=== PATIENT | female | born 1960 | race Caucasian/White ===

== ENCOUNTER → 2023-01-12 13:29 | Outpatient (BNVA) | payer SELFPAY | PROVIDERS: PCP Family Medicine; Visit Provider Registered Nurse Neonatal Intensive Care | DX: R39.9 Unspecified symptoms and signs involving the genitourinary system (principal); N39.0 Urinary tract infection, site not specified | CPT/HCPCS: 81000; 87086 ==

== ENCOUNTER 2023-07-30 05:22 | Emergency (ER) | payer OTHER, MEDICAID, SELFPAY ==
--- NOTE | 2023-07-30 05:25 | ECG_ITS ---
[facility] Test Date: 2023-07-30 Pat Name: Cici Najera Department: Room: Gender: Female Billet Recorder: : 1960 Requested By: Luna Kent Order Number: [id number] Kem MD: Michael Cao M.D. Measurements Intervals [place] Rate: 103 P: 72 [place]: 154 QRS: -71 QRSD: 108 T: 104 QT: 351 QTc: 460 Interpretive Statements SINUS TACHYCARDIA POSSIBLE LEFT ATRIAL ENLARGEMENT [-0.1mV P-WAVE IN V1/V2] LEFT AXIS DEVIATION [QRS AXIS < -30] ANTEROSEPTAL MYOCARDIAL INFARCTION , OF INDETERMINATE AGE [40+ ms Q WAVE IN V1-V4] MODERATE T-WAVE ABNORMALITY, CONSIDER LATERAL ISCHEMIA [-0.1+ mV T-WAVE IN I/aVL/V5/V6] No previous ECG available for comparison Electronically Signed On 07-30-2023 23:15:32 VENETIAN BLIND ASSEMBLER by Michael Cao M.D. [id number]
[2023-07-30 05:26] VITALS: BP 192/113; PULSE 103; RESP 22; TEMP 36.7; O2SAT 95; BMI 27.9
--- NOTE | 2023-07-30 05:33 | XRR_ITS ---
PROCEDURE INFORMATION: Exam: XR Chest Exam date and time: 07/30/2023 5:39 AM Age: 63 years old Clinical indication: Shortness of breath; Prior surgery; Surgery date: 6+ months; Surgery type: Open heart; Additional info: SOB TECHNIQUE: Imaging protocol: Radiologic exam of the chest. Views: 1 view. COMPARISON: No relevant prior studies available. FINDINGS: Lungs: There is ill-defined ground-glass opacity in the mid to lower left lung partially obscuring left heart border and left hemidiaphragm. There is similar opacity in the medial lower right lung, with dense opacity obscuring the right heart border. Pleural spaces: No pneumothorax. The right lateral costophrenic sulcus is blunted. The left hemidiaphragm is obscured. Heart/Mediastinum: The cardiac silhouette is partially obscured and mildly enlarged. Bones/joints: Sternal wires are present. There is no displacement to suggest sternal dehiscence. XR/XR chest 1V portable [id number] IMPRESSION: 1. Probable bilateral pleural effusions, greater on the left. 2. Nonspecific opacity in both lungs, greater on the left. Possible pulmonary edema, infection and or atelectasis.
--- NOTE | 2023-07-30 05:34 | ED_ITS ---
Documented by User: Luna Kent MD 07/30/23 17:56 HPI - SOB/Dyspnea General: Chief Complaint: Shortness of Breath/Dyspnea Stated Complaint: sob nausea Time Seen by Provider: 07/30/23 05:27 Source: patient Mode of arrival: ambulatory Limitations: no limitations History of Present Illness: HPI Narrative: 63-year-old female with a history of extensive cardiac history including open heart surgery in the past states that over the last week she has had shortness of breath along with some nausea. She denies any chest pain but states that she has had similar episodes like this in the past when she had MA. She denies any cough or fever denies any worsening proving factors. Associated symptoms: Reports nausea; Deny abdominal pain, chest pain, fever(s) or vomiting Review of Systems Const: Denies: fever(s), chills, body aches or change in appetite ENMT: Denies: throat pain or dental pain Card: Denies: chest pain Resp: Reports: dyspnea GI: Reports: nausea; Denies: abdominal pain, vomiting or diarrhea Musc: Denies: neck pain or back pain Skin/Breast: Denies: rash Neuro: Denies: headache(s) Course Vital Signs: Vital signs: Vital Signs Temperature 98.0 F 07/30/23 05:26 Pulse Rate 82 07/30/23 06:31 Respiratory Rate 15 07/30/23 06:31 Blood Pressure 151/89 07/30/23 06:31 Pulse Oximetry 97 07/30/23 06:31 Oxygen Delivery Me thod Room Air 07/30/23 06:31 MDM - SOB/Dyspnea Medical Decision Making Patient presents for shortness of breath care turned over to Dr. Babin at this time pending imaging and blood work. Medical Records I reviewed the patient's medical records. Lab Data I reviewed the patient's lab results. 07/30/23 05:38 07/30/23 05:38 Labs/Radiology: Radiology Impressions Chest X-Ray 07/30/23 05:33 IMPRESSION: 1. Probable bilateral pleural effusions, greater on the left. 2. Nonspecific opacity in both lungs, greater on the left. Possible pulmonary edema, infection and or atelectasis. Laboratory Results WBC 9.16 10^3/uL (3.29-11.43) 07/30/23 05:38 RBC 4.41 10^6/uL (3.85-5.65) 07/30/23 05:38 Hgb 11.50 g/dL (11.27-16.99) 07/30/23 05:38 Hct 36.1 % (36-47) 07/30/23 05:38 MCV 81.9 fl (85-98) L 07/30/23 05:38 MCH 26.1 pg (27-33) L 07/30/23 05:38 MCHC 31.9 g/dL (30-55) 07/30/23 05:38 RDW 13.9 % (12.1-15.1) 07/30/23 05:38 Plt Count 218 10^3/cmm (157-399) 07/30/23 05:38 MPV 9.1 fL (7.4-10.4) 07/30/23 05:38 Neut % (Auto) 74.9 % 07/30/23 05:38 Lymph % (Auto) 16.8 % 07/30/23 05:38 Calvert % (Auto) 5.2 % 07/30/23 05:38 Eos % (Auto) 2.5 % 07/30/23 05:38 Baso % (Auto) 0.4 % 07/30/23 05:38 Neut # (Auto) 6.85 10^3/uL (1.8-7.7) 07/30/23 05:38 Lymph # (Auto) 1.5 10^3/uL (0.8-4.8) 07/30/23 05:38 Calvert # (Auto) 0.5 10^3/uL (0.2-0.9) 07/30/23 05:38 Eos # (Auto) 0.2 10^3/uL (0.0-0.8) 07/30/23 05:38 Baso # (Auto) 0.0 10^3/uL (0.0-0.1) 07/30/23 05:38 Nucleated RBC % (auto) 0 % 07/30/23 05:38 Nucleated RBCs # 0.0 /100WBC 07/30/23 05:38 Sodium 143 mmol/L (136-145) 07/30/23 05:38 Potassium 4.4 mmol/L (3.5-5.1) 07/30/23 05:38 Chloride 107 mmol/L (98-107) 07/30/23 05:38 Carbon Dioxide 27 mmol/L (22-29) 07/30/23 05:38 Anion Gap 13.4 (5-19) 07/30/23 05:38 BUN 26 mg/dL (8-23) H 07/30/23 05:38 Creatinine 1.3 mg/dL (0.5-0.9) H 07/30/23 05:38 GFR Calculation 41.2 mL/min (90-130) L 07/30/23 05:38 Glucose 142 mg/dL (65-115) H 07/30/23 05:38 Calculated Osmolality 303 mOsm/kg (285-295) H 07/30/23 05:38 Calcium 9.5 mg/dL (8.5-10.5) 07/30/23 05:38 Total Bilirubin 0.5 mg/dL (0.15-1.2) 07/30/23 05:38 AST 11 U/L (0-32) 07/30/23 05:38 ALT 8 U/L (0-33) 07/30/23 05:38 Alkaline Phosphatase 72 U/L (35-105) 07/30/23 05:38 Troponin T Baseline 73 ng/L (0-10) H 07/30/23 05:38 Troponin T 120 Minute 59.21 ng/L (0-10) H 07/30/23 07:37 Delta Troponin T -13.79 ABS# (0-10) L 07/30/23 07:37 NT-Pro-B Natriuret Pep 5071 pg/mL (0-125) H 07/30/23 05:38 Total Protein 7.4 g/dL (6.6-8.7) 07/30/23 05:38 Albumin 4.4 g/dL (3.5-5.2) 07/30/23 05:38 Globulin 3.0 g/dL (1.3-4.6) 07/30/23 05:38 All radiology interpretation(s) finalized by discharge EKG Data EKG 1: I personally reviewed and interpreted this EKG as follows: EKG Interpretation Date: 07/30/23 EKG interpretation time: 09:25 Interpretation: sinus tach hr [address] or t wave abnormalities qrs 108 qtc 410 Discharge Plan Discharge Patient Disposition: Home Clinical Impression: Congestive heart failure, Hx of coronary artery disease Condition: Stable Prescriptions: New Lasix 40 mg tablet 40 mg PO DAILY Qty: 5 0RF No Action insulin glargine 100 unit/mL cartridge 40 unit SUBCUT QAM pioglitazone-glimepiride 30-2 mg tablet 1 tab PO DAILY Rx Instructions: administer with the first main meal lisinopril 40 mg tablet 40 mg PO DAILY aspirin 81 mg tablet,chewable 81 mg PO QAM furosemide 20 mg tablet 20 mg PO QAM Discharge Orders: Discharge ED (Routine); Ordered 07/30/23 Ordered By: Niko Babin Referrals: NINA MARCH MD [Primary Care Provider] - Discharge Diet: Cardiac and Low Salt Discharge Activity: Increase activity as tolerated Patient Instructions: Heart Failure (ED), Opioid Safety, Pain Management Activity Restrictions/Additional Instructions: Thank you for choosing [facility] for your healthcare needs today. Please realize this is an emergency room and that we are providing you with a medical screening exam and this may not be complete and all inclusive of all the testing and or work up that you may need to determine your ailment or severity of your illness. It is very important that you follow up as instructed or that you return to the Emergency Department should you have concerns or if your condition changes or worsens in any way. You are seen today in the emergency room for shortness of breath and orthopnea. Recommend you increase your Lasix to 40 mg daily for at least next 3 days you are given a new prescription for this. Keep your appoint follow-up appointment with your embroidery assistant tomorrow to reevaluate. If any worsening or change symptoms return to the emergency room. Continue to take your other blood pressu re medications as previously prescribed. Coding Level of Care Code ED Surgeon Assistant for Chg Fwd Documented by User: Niko Babin DO 07/31/23 06:09 HPI - SOB/Dyspnea General: Chief Complaint: Shortness of Breath/Dyspnea Stated Complaint: sob nausea Time Seen by Provider: 07/30/23 05:27 Course Vital Signs: Vital signs: Vital Signs Temperature 98.0 F 07/30/23 05:26 Pulse Rate 82 07/30/23 06:31 Respiratory Rate 15 07/30/23 06:31 Blood Pressure 151/89 07/30/23 06:31 Pulse Oximetry 97 07/30/23 06:31 Oxygen Delivery Me thod Room Air 07/30/23 06:31 MDM - SOB/Dyspnea Medical Decision Making Patient presents for shortness of breath care turned over to Dr. Babin at this time pending imaging and blood work. Care assumed at change of shift. Troponins stable. No significant delta. Think she does have some fluid overload she is somewhat improved after receiving Lasix. Her creatinine is borderline at 1.3 will need to watch closely we will start her back on Lasix 20 mg daily and have her follow-up with her primary care doctor or embroidery assistant within the next 3 to 4 days. Noted that pioglitazone glimepiride is on her medication list however the medications the patient and wh ether she states she is not taking that particular medication she is taking plain glimepiride at this point. Lab Data 07/30/23 05:38 07/30/23 05:38 Labs/Radiology: Radiology Impressions Chest X-Ray 07/30/23 05:33 IMPRESSION: 1. Probable bilateral pleural effusions, greater on the left. 2. Nonspecific opacity in both lungs, greater on the left. Possible pulmonary edema, infection and or atelectasis. Laboratory Results WBC 9.16 10^3/uL (3.29-11.43) 07/30/23 05:38 RBC 4.41 10^6/uL (3.85-5.65) 07/30/23 05:38 Hgb 11.50 g/dL (11.27-16.99) 07/30/23 05:38 Hct 36.1 % (36-47) 07/30/23 05:38 MCV 81.9 fl (85-98) L 07/30/23 05:38 MCH 26.1 pg (27-33) L 07/30/23 05:38 MCHC 31.9 g/dL (30-55) 07/30/23 05:38 RDW 13.9 % (12.1-15.1) 07/30/23 05:38 Plt Count 218 10^3/cmm (157-399) 07/30/23 05:38 MPV 9.1 fL (7.4-10.4) 07/30/23 05:38 Neut % (Auto) 74.9 % 07/30/23 05:38 Lymph % (Auto) 16.8 % 07/30/23 05:38 Calvert % (Auto) 5.2 % 07/30/23 05:38 Eos % (Auto) 2.5 % 07/30/23 05:38 Baso % (Auto) 0.4 % 07/30/23 05:38 Neut # (Auto) 6.85 10^3/uL (1.8-7.7) 07/30/23 05:38 Lymph # (Auto) 1.5 10^3/uL (0.8-4.8) 07/30/23 05:38 Calvert # (Auto) 0.5 10^3/uL (0.2-0.9) 07/30/23 05:38 Eos # (Auto) 0.2 10^3/uL (0.0-0.8) 07/30/23 05:38 Baso # (Auto) 0.0 10^3/uL (0.0-0.1) 07/30/23 05:38 Nucleated RBC % (auto) 0 % 07/30/23 05:38 Nucleated RBCs # 0.0 /100WBC 07/30/23 05:38 Sodium 143 mmol/L (136-145) 07/30/23 05:38 Potassium 4.4 mmol/L (3.5-5.1) 07/30/23 05:38 Chloride 107 mmol/L (98-107) 07/30/23 05:38 Carbon Dioxide 27 mmol/L (22-29) 07/30/23 05:38 Anion Gap 13.4 (5-19) 07/30/23 05:38 BUN 26 mg/dL (8-23) H 07/30/23 05:38 Creatinine 1.3 mg/dL (0.5-0.9) H 07/30/23 05:38 GFR Calculation 41.2 mL/min (90-130) L 07/30/23 05:38 Glucose 142 mg/dL (65-115) H 07/30/23 05:38 Calculated Osmolality 303 mOsm/kg (285-295) H 07/30/23 05:38 Calcium 9.5 mg/dL (8.5-10.5) 07/30/23 05:38 Total Bilirubin 0.5 mg/dL (0.15-1.2) 07/30/23 05:38 AST 11 U/L (0-32) 07/30/23 05:38 ALT 8 U/L (0-33) 07/30/23 05:38 Alkaline Phosphatase 72 U/L (35-105) 07/30/23 05:38 Troponin T Baseline 73 ng/L (0-10) H 07/30/23 05:38 Troponin T 120 Minute 59.21 ng/L (0-10) H 07/30/23 07:37 Delta Troponin T -13.79 ABS# (0-10) L 07/30/23 07:37 NT-Pro-B Natriuret Pep 5071 pg/mL (0-125) H 07/30/23 05:38 Total Protein 7.4 g/dL (6.6-8.7) 07/30/23 05:38 Albumin 4.4 g/dL (3.5-5.2) 07/30/23 05:38 Globulin 3.0 g/dL (1.3-4.6) 07/30/23 05:38 Discharge Plan Discharge Patient Disposition: Home Clinical Impression: Congestive heart failure, Hx of coronary artery disease Condition: Stable Prescriptions: New Lasix 40 mg tablet 40 mg PO DAILY Qty: 5 0RF No Action insulin glargine 100 unit/mL cartridge 40 unit SUBCUT QAM pioglitazone-glimepiride 30-2 mg tablet 1 tab PO DAILY Rx Instructions: administer with the first main meal lisinopril 40 mg tablet 40 mg PO DAILY aspirin 81 mg tablet,chewable 81 mg PO QAM furosemide 20 mg tablet 20 mg PO QAM Discharge Orders: Discharge ED (Routine); Ordered 07/30/23 Ordered By: Niko Babin Referrals: NINA MARCH MD [Primary Care Provider] - Discharge Diet: Cardiac and Low Salt Discharge Activity: Increase activity as tolerated Patient Instructions: Heart Failure (ED), Opioid Safety, Pain Management Activity Restrictions/Additional Instructions: Thank you for choosing [facility] for your healthcare needs today. Please realize this is an emergency room and that we are providing you with a medical screening exam and this may not be complete and all inclusive of all the testing and or work up that you may need to determine your ailment or severity of your illness. It is very important that you follow up as instructed or that you return to the Emergency Department should you have concerns or if your condition changes or worsens in any way. You are seen today in the emergency room for shortness of breath and orthopnea. Recommend you increase your Lasix to 40 mg daily for at least next 3 days you are given a new prescription for this. Keep your appoint follow-up appointment with your embroidery assistant tomorrow to reevaluate. If any worsening or change symptoms return to the emergency room. Continue to take your other blood pressure medications as previously prescribed. Coding Level of Care Code ED Surgeon Assistant for Kimberly Cabrales
[2023-07-30 05:45] VITALS: BP 168/102; PULSE 82; RESP 18; O2SAT 97
[2023-07-30 05:46] LABS: Basophils % 0.4 %; Eosinophils # 0.2 10^3/uL (0.0-0.8); Eosinophils % 2.5 %; Hematocrit 36.1 % (36-47); Lymphocytes # 1.5 10^3/uL (0.8-4.8); Lymphocytes % 16.8 %; Mean Corpuscular HGB Conc 31.9 g/dL (30-55); Mean Corpuscular Hemoglobin 26.1 pg (27-33); Mean Corpuscular Volume 81.9 fl (85-98); Mean Platelet Volume 9.1 fL (7.4-10.4); Monocytes # 0.5 10^3/uL (0.2-0.9); Monocytes % 5.2 %; Neutrophils # 6.85 10^3/uL (1.8-7.7); Neutrophils % 74.9 %; Nucleated Red Blood Cells % 0 %; Platelet Count 218 10^3/cmm (157-399); Red Blood Count 4.41 10^6/uL (3.85-5.65); Red Cell Distribution Width 13.9 % (12.1-15.1); White Blood Count 9.16 10^3/uL (3.29-11.43)
[2023-07-30] MEDS: labetalol 5 mg/mL SDV 20mL 10 MG IVP (05:46)
[2023-07-30 06:01] VITALS: BP 138/83; PULSE 82; RESP 20; O2SAT 95
[2023-07-30 06:12] LABS: Troponin(5th) Baseline 73 ng/L (0-10)
[2023-07-30 06:16] VITALS: BP 148/89; PULSE 81; RESP 17; O2SAT 96
[2023-07-30 06:19] LABS: Alanine Aminotransferase 8 U/L (0-33); Albumin Level 4.4 g/dL (3.5-5.2); Alkaline Phosphatase 72 U/L (35-105); Anion Gap 13.4 (5-19); Aspartate Amino Transferase 11 U/L (0-32); Blood Urea Nitrogen 26 mg/dL (8-23); Calcium 9.5 mg/dL (8.5-10.5); Carbon Dioxide 27 mmol/L (22-29); Chloride 107 mmol/L (98-107); Glomerular Filtration Rate 41.2 mL/min (90-130); Glucose 142 mg/dL (65-115); NT Pro B Type Natriuretic Pept 5071 pg/mL (0-125); Osmolality Calculated 303 mOsm/kg (285-295); Potassium 4.4 mmol/L (3.5-5.1); Sodium 143 mmol/L (136-145); Total Bilirubin 0.5 mg/dL (0.15-1.2); Total Protein 7.4 g/dL (6.6-8.7)
[2023-07-30 06:31] VITALS: BP 151/89; PULSE 82; RESP 15; O2SAT 97
[2023-07-30] MEDS: FUROsemide 10 mg/mL SDV 4mL 40 MG IVP (07:17)
--- NOTE | 2023-07-30 07:21 | PC.PHAR ---
PT HAS RX FOR TRADJENTA 5 MG (NOT COVERED ON INSURANCE) BUT IS 500.00 AND UNAFFORDABLE AT THIS TIME.
--- NOTE | 2023-07-30 07:33 | ECG_ITS ---
[facility] Test Date: 2023-07-30 Pat Name: Cici Najera Department: Room: Gender: Female Quality Control Analyst: : 1960 Requested By: Luna Kent Order Number: [id number] Kem MD: Michael Cao M.D. Measurements Intervals [place] Rate: 85 P: 63 [place]: 157 QRS: -66 QRSD: 109 T: 106 QT: 409 QTc: 488 Interpretive Statements SINUS RHYTHM POSSIBLE LEFT ATRIAL ENLARGEMENT [-0.1mV P-WAVE IN V1/V2] LEFT AXIS DEVIATION [QRS AXIS < -30] PATTERN CONSISTENT WITH PULMONARY DISEASE SEPTAL MYOCARDIAL INFARCTION , OF INDETERMINATE AGE [40+ ms Q WAVE IN V1/V2] MODERATE T-WAVE ABNORMALITY, CONSIDER LATERAL ISCHEMIA [-0.1+ mV T-WAVE IN I/aVL/V5/V6] Compared to ECG 07/30/2023 05:25:55 Sinus tachycardia no longer present Myocardial infarct finding still present T-wave abnormality still present Possible ischemia still present Electronically Signed On 07-30-2023 23:24:54 DATA OPERATIONS DIRECTOR by Michael Cao M.D. [id number]
[2023-07-30 08:02] LABS: Troponin 5 2HR 59.21 ng/L (0-10)
== END 2023-07-30 09:55 | disposition home or self-care (01) ==
PROVIDERS: Emergency Medicine; Emergency Provider Family Medicine; PCP Family Medicine
DX: I50.9 Heart failure, unspecified (principal); I25.10 Atherosclerotic heart disease of native coronary artery without angina pectoris; Z79.82 Long term (current) use of aspirin; Z79.4 Long term (current) use of insulin
CPT/HCPCS: 36415; 71045; 80053; 83880; 84484; 85025; 93005; 96374; 96375; 99284; J1940; J3490

== ENCOUNTER 2023-09-20 06:03 | Emergency (ER) | payer MEDICAID, SELFPAY ==
[2023-09-20 06:09] VITALS: BP 164/88; PULSE 91; RESP 18; TEMP 36.3; O2SAT 94; BMI 28.7
--- NOTE | 2023-09-20 06:10 | ECG_ITS ---
[facility] Test Date: 2023-09-20 Pat Name: Cici Najera Department: Room: Gender: Female Curtain Cutter: : 1960 Requested By: Niko Azar Order Number: [id number] Kem MD: Michael Cao M.D. Measurements Intervals [place] Rate: 86 P: 66 [place]: 160 QRS: -60 QRSD: 105 T: 98 QT: 388 QTc: 465 Interpretive Statements SINUS RHYTHM LEFT AXIS DEVIATION [QRS AXIS < -30] PATTERN CONSISTENT WITH PULMONARY DISEASE SEPTAL MYOCARDIAL INFARCTION , OF INDETERMINATE AGE [40+ ms Q WAVE IN V1/V2] Compared to ECG 07/30/2023 07:40:59 T-wave abnormality no longer present Possible ischemia no longer present Myocardial infarct finding still present Electronically Signed On 09-20-2023 16:31:15 COMMAND CENTER OFFICER by Michael Cao M.D. [id number]
--- NOTE | 2023-09-20 06:21 | W.ED.SOB ---
HPI - SOB/Dyspnea General: Chief Complaint: Shortness of Breath/Dyspnea Stated Complaint: SOB Time Seen by Provider: 09/20/23 06:15 Source: patient Mode of arrival: ambulatory History of Present Illness: HPI Narrative: 63-year-old female presents to the emergency room complaining of increasing orthopnea and shortness of breath on exertion. Patient has a history of bypass in February of this year subsequently has had some heart failure. She relates that her ejection fraction is 35%. She denies any chest pain. She has noticed relatively rapid decline in exercise tolerance and increase in shortness of breath even with simple activities such as walking to the bathroom in her own home. She is diabetic. We seen the patient in the ER once before at that time we noted she was listed as taking pioglitazone on her medication list but she told us that time she was not taking it. Patient relates that we reviewed seizure in July we had increased her Lasix to 40 daily. She did not follow-up with electric freight car operator the following day they had her maintain her Lasix at 20 daily and added metoprolol and clopidogrel as well as losartan per her report. She relates she continued to have trouble over the next 2 weeks and then the first week of August she was seen again ultimately had a thoracentesis and they took 1500 mL of fluid off of her chest. She states today she feels like it is recurring. MD elicited complaint: shortness of breath Pertinent past history: congestive heart failure and diabetes Onset (ago): minute(s) Timing: constant and progressively worsening Severity: moderate Exacerbating factors: lying flat and exertion Relieving factors: rest and upright position Known history of: congestive heart failure and diabetes Associated symptoms: Deny abdominal pain, chest congestion, chest pain, cough, diaphoresis, dizziness, extremity pain, fever(s), hemoptysis, lightheadedness, myalgias, nausea, orthopnea, palpitations, paresthesias, polydipsia, polyuria, rash, sense of impending doom, syncope or vomiting Treatment prior to arrival: none Review of Systems Const: Denies: fever(s), chills or diaphoresis Card: Denies: chest pain, palpitations, lightheadedness, syncope or orthopnea Resp: Denies: dyspnea, hemoptysis or chest congestion GI: Denies: abdominal pain, nausea or vomiting : Denies: dysuria, urinary frequency or urinary urgency Musc: Denies: neck pain, back pain or extremity pain Skin/Breast: Denies: rash Neuro: Denies: dizziness Endo: Denies: polyuria or polydipsia Physical Exam Const: COMMON NORMALS: no acute distress GENERAL APPEARANCE: cooperative and comfortable ORIENTATION/CONSCIOUSNESS: Yes awake, Yes oriented to person, Yes oriented to place and Yes oriented to time HENMT: COMMON NORMALS: normocephalic, atraumatic and hearing grossly normal bilaterally HEAD & SCALP: normocephalic and atraumatic Resp: COMMON NORMALS: normal respiratory effort, No retractions, No use of accessory muscles and clear to auscultation bilaterally AUSCULTATION: clear to auscultation bilaterally Cardio: COMMON NORMALS: regular rate, regular rhythm and No murmurs present (Cardio) RATE: regular rate RHYTHM: regular rhythm GI: COMMON NORMALS: Soft to palpation and No hepatosplenomegaly present AUSCULTATION: Yes normoactive bowel sounds PALPATION: Yes Soft to palpation, No Tenderness to palpation present (GI), No Guarding due to palpation present (GI) and Yes No hepatosplenomegaly present Extremity: COMMON NORMALS: normal to inspection, capillary refill normal, no clubbing, cyanosis or edema, no calf tenderness and no pedal edema Neuro: SENSORIUM/ORIENTATION: Yes oriented to person, Yes oriented to place and Yes oriented to time Skin: COMMON NORMALS: no rashes or lesions noted GENERAL SKIN EXAM: no rashes or lesions noted Course Vital Signs: Vital signs: Vital Signs Temperature 97.4 F L 09/20/23 06:09 Pulse Rate 72 09/20/23 10:30 Respiratory Rate 22 H 09/20/23 08:51 Blood Pressure 151/80 09/20/23 09:46 Pulse Oximetry 99 09/20/23 10:30 Oxygen Delivery Me thod Room Air 09/20/23 10:30 MDM - SOB/Dyspnea Medical Decision Making Patient diuresed emergency room states she is feeling much better breathing is improved orthopnea has improved she has less shortness of breath when she is up and walking. I came back to check on her she is up walking in the room. Will increase her Lasix to 60 mg daily for the next 2 days have her follow-up with her primary care doctor or electric freight car operator in 2 to 3 days. If she has worsening of symptoms to be seen sooner. Labs imaging and EKG reviewed. Medical Records I reviewed the patient's medical records. Lab Data I reviewed the patient's lab results. 09/20/23 06:22 09/20/23 06:22 Labs/Radiology: Radiology Impressions Chest X-Ray 09/20/23 06:22 IMPRESSION: Bilateral pleuroparenchymal opacities are again seen with slight interval improvement on the left with some clearing in the left mid lateral lung field. Laboratory Results WBC 6.79 10^3/uL (3.29-11.43) 09/20/23 06:22 RBC 4.04 10^6/uL (3.85-5.65) 09/20/23 06:22 Hgb 10.40 g/dL (11.27-16.99) L 09/20/23 06:22 Hct 32.9 % (36-47) L 09/20/23 06:22 MCV 81.4 fl (85-98) L 09/20/23 06:22 MCH 25.7 pg (27-33) L 09/20/23 06:22 MCHC 31.6 g/dL (30-55) 09/20/23 06:22 RDW 14.5 % (12.1-15.1) 09/20/23 06:22 Plt Count 186 10^3/cmm (157-399) 09/20/23 06:22 MPV 9.3 fL (7.4-10.4) 09/20/23 06:22 Neut % (Auto) 72.8 % 09/20/23 06:22 Lymph % (Auto) 18.3 % 09/20/23 06:22 [place] % (Auto) 5.6 % 09/20/23 06:22 Eos % (Auto) 2.4 % 09/20/23 06:22 Baso % (Auto) 0.6 % 09/20/23 06:22 Neut # (Auto) 4.95 10^3/uL (1.8-7.7) 09/20/23 06:22 Lymph # (Auto) 1.2 10^3/uL (0.8-4.8) 09/20/23 06:22 [place] # (Auto) 0.4 10^3/uL (0.2-0.9) 09/20/23 06:22 Eos # (Auto) 0.2 10^3/uL (0.0-0.8) 09/20/23 06:22 Baso # (Auto) 0.0 10^3/uL (0.0-0.1) 09/20/23 06:22 Nucleated RBC % (auto) 0 % 09/20/23 06:22 Nucleated RBCs # 0.0 /100WBC 09/20/23 06:22 Sodium 143 mmol/L (136-145) 09/20/23 06:22 Potassium 4.4 mmol/L (3.5-5.1) 09/20/23 06:22 Chloride 107 mmol/L (98-107) 09/20/23 06:22 Carbon Dioxide 26 mmol/L (22-29) 09/20/23 06:22 Anion Gap 14.4 (5-19) 09/20/23 06:22 BUN 35 mg/dL (8-23) H 09/20/23 06:22 Creatinine 1.3 mg/dL (0.5-0.9) H 09/20/23 06:22 GFR Calculation 41.2 mL/min (90-130) L 09/20/23 06:22 Glucose 164 mg/dL (65-115) H 09/20/23 06:22 Calculated Osmolality 308 mOsm/kg (285-295) H 09/20/23 06:22 Calcium 9.7 mg/dL (8.5-10.5) 09/20/23 06:22 Total Bilirubin 0.5 mg/dL (0.15-1.2) 09/20/23 06:22 AST 15 U/L (0-32) 09/20/23 06:22 ALT 16 U/L (0-33) 09/20/23 06:22 Alkaline Phosphatase 80 U/L (35-105) 09/20/23 06:22 Troponin T Baseline 66 ng/L (0-10) H 09/20/23 06:22 Troponin T 120 Minute 59.33 ng/L (0-10) H 09/20/23 08:29 Delta Troponin T -6.67 ABS# (0-10) L 09/20/23 08:29 NT-Pro-B Natriuret Pep 6994 pg/mL (0-125) H 09/20/23 06:22 Total Protein 7.3 g/dL (6.6-8.7) 09/20/23 06:22 Albumin 4.4 g/dL (3.5-5.2) 09/20/23 06:22 Globulin 2.9 g/dL (1.3-4.6) 09/20/23 06:22 Urine Color Straw (Yellow) 09/20/23 06:35 Urine Appearance Clear (CLEAR) 09/20/23 06:35 Urine pH 5 (5-7) 09/20/23 06:35 Ur Specific [place] 1.010 (1.005-1.030) 09/20/23 06:35 Urine Protein 1+ (Negative) H 09/20/23 06:35 Urine Glucose (UA) Norm (Normal) 09/20/23 06:35 Urine Ketones Negative (Negative) 09/20/23 06:35 Urine Blood Trace (Negative) H 09/20/23 06:35 Urine Nitrate Negative (Negative) 09/20/23 06:35 Urine Bilirubin Neg (Negative) 09/20/23 06:35 Urine Urobilinogen Neg mg/dL (Negative) 09/20/23 06:35 Ur Leukocyte Esterase Negative (Negative) 09/20/23 06:35 Urine RBC 0-4 /hpf (0-2) H 09/20/23 06:35 Urine WBC 0-4 /hpf (0-5) H 09/20/23 06:35 Ur Squamous Epith Cells 0-4 /hpf (0-5) H 09/20/23 06:35 Amorphous Sediment Not Reportable 09/20/23 06:35 Urine Bacteria 1+ /hpf (NONE) H 09/20/23 06:35 Hyaline Casts 0-4 /lpf H 09/20/23 06:35 Urine Mucus Trace /hpf 09/20/23 06:35 All radiology interpretation(s) finalized by discharge EKG Data EKG 1: EKG Interpretation Date: 09/20/23 EKG interpretation time: 06:24 Prior EKG tracings: available for review Computer Generated Interpretation: Normal sinus rhythm rate 86 VT interval 0.16 QT normal unchanged from 07/30/2023 Discharge Plan Discharge Patient Disposition: Home Clinical Impression: Congestive heart failure Condition: Stable Prescriptions: No Action aspirin 81 mg tablet,chewable 81 mg PO QAM Lantus U-100 Insulin 100 unit/mL solution 40 unit SUBCUT DAILY PRN (Reason: uses when out of glimepiride and tradjenta) metoprolol succinate 100 mg tablet extended release 24 hr 100 mg PO QAM clopidogrel 75 mg tablet 75 mg PO QAM glimepiride 4 mg tablet 4 mg PO QAM losartan 25 mg tablet 25 mg PO QAM Tradjenta 5 mg tablet 5 mg PO QAM Lasix 40 mg tablet 40 mg PO QAM Discharge Orders: Discharge ED (Routine); Ordered 09/20/23 Ordered By: Niko Babin Referrals: NINA MARCH MD [Primary Care Provider] - Discharge Diet: Cardiac Discharge Activity: Limit activity as instructed Patient Instructions: Heart Failure (ED), Opioid Safety, Pain Management Activity Restrictions/Additional Instructions: Thank you for choosing [facility] for your healthcare needs today. Please realize this is an emergency room and that we are providing you with a medical screening exam and this may not be complete and all inclusive of all the testing and or work up that you may need to determine your ailment or severity of your illness. It is very important that you follow up as instructed or that you return to the Emergency Department should you have concerns or if your condition changes or worsens in any way. You are seen today with complaints of shortness of breath. Your heart enzymes were normal your laboratory test for heart failure was slightly elevated there is some increased fluid on the chest x-ray. Your symptoms improved after the Lasix you were given in the emergency room would recommend you increase your oral Lasix at home to 60 mg a day for the next 2 days. You should contact your primary care doctor or your electric freight car operator office today to schedule a follow-up appointment on Saturday or Saturday in 2 to 3 days. Continue all of your other medications as previously prescribed if you have any further problems recheck with your primary care doctor or return to the emergency room sooner. Coding Level of Care Code ED Cath Lab for Kimberly Cabrales
--- NOTE | 2023-09-20 06:22 | XRR_ITS ---
PROCEDURE INFORMATION: Exam: XR Chest Exam date and time: 09/20/2023 6:46 AM Age: 63 years old Clinical indication: Cough and dyspnea and shortness of breath; Prior surgery; Surgery date: 6+ months; Surgery type: Open heart; Additional info: Dyspnea/cough TECHNIQUE: Imaging protocol: Radiologic exam of the chest. Views: 1 view. COMPARISON: CR XR chest 1V portable [id number] 07/30/2023 5:39 AM FINDINGS: Lungs: Bilateral pleuroparenchymal opacities are again seen with slight interval improvement on the left with some clearing in the left mid lateral lung field. Pleural spaces: No pneumothorax. See above. Heart/Mediastinum: Stable. Bones/joints: Sternal sutures are again seen. No acute findings. XR/XR chest 1V portable [id number] IMPRESSION: Bilateral pleuroparenchymal opacities are again seen with slight interval improvement on the left with some clearing in the left mid lateral lung field.
[2023-09-20 06:31] LABS: Basophils % 0.6 %; Eosinophils # 0.2 10^3/uL (0.0-0.8); Eosinophils % 2.4 %; Hematocrit 32.9 % (36-47); Lymphocytes # 1.2 10^3/uL (0.8-4.8); Lymphocytes % 18.3 %; Mean Corpuscular HGB Conc 31.6 g/dL (30-55); Mean Corpuscular Hemoglobin 25.7 pg (27-33); Mean Corpuscular Volume 81.4 fl (85-98); Mean Platelet Volume 9.3 fL (7.4-10.4); Monocytes # 0.4 10^3/uL (0.2-0.9); Monocytes % 5.6 %; Neutrophils # 4.95 10^3/uL (1.8-7.7); Neutrophils % 72.8 %; Nucleated Red Blood Cells % 0 %; Platelet Count 186 10^3/cmm (157-399); Red Blood Count 4.04 10^6/uL (3.85-5.65); Red Cell Distribution Width 14.5 % (12.1-15.1); White Blood Count 6.79 10^3/uL (3.29-11.43)
[2023-09-20 06:40] VITALS: BP 164/88; PULSE 83; RESP 22; O2SAT 98
[2023-09-20 06:47] VITALS: BP 164/88; PULSE 80; RESP 15; O2SAT 97
[2023-09-20 06:51] LABS: Troponin(5th) Baseline 66 ng/L (0-10)
[2023-09-20 06:58] LABS: Alanine Aminotransferase 16 U/L (0-33); Albumin Level 4.4 g/dL (3.5-5.2); Alkaline Phosphatase 80 U/L (35-105); Anion Gap 14.4 (5-19); Aspartate Amino Transferase 15 U/L (0-32); Blood Urea Nitrogen 35 mg/dL (8-23); Calcium 9.7 mg/dL (8.5-10.5); Carbon Dioxide 26 mmol/L (22-29); Chloride 107 mmol/L (98-107); Globulin 2.9 g/dL (1.3-4.6); Glomerular Filtration Rate 41.2 mL/min (90-130); Glucose 164 mg/dL (65-115); NT Pro B Type Natriuretic Pept 6994 pg/mL (0-125); Osmolality Calculated 308 mOsm/kg (285-295); Potassium 4.4 mmol/L (3.5-5.1); Sodium 143 mmol/L (136-145); Total Bilirubin 0.5 mg/dL (0.15-1.2); Total Protein 7.3 g/dL (6.6-8.7)
[2023-09-20 07:26] LABS: Blood Urine Trace (Negative); Glucose Urine UA Norm (Normal); Ketones Urine Negative (Negative); Protein Urine 1+ (Negative); Urine Appearance Clear (CLEAR); Urine Color Straw (Yellow); pH Urine 5 (5-7)
[2023-09-20 07:27] LABS: Add Urine Culture? No; Add Urine Microscopic? YES; Bacteria Urine 1+ /hpf; Bilirubin Urine Neg (Negative); Hyaline Casts Urine 0-4 /lpf; Leukocyte Esterase Urine Negative (Negative); Mucus Urine TRACE /hpf; Nitrate Urine Negative (Negative); RBC Urine 0-4 /hpf (0-2); Squamous Epithelial Cell Urine 0-4 /hpf (0-5); Urobilinogen Urine Neg (Negative); WBC Urine 0-4 /hpf (0-5)
--- NOTE | 2023-09-20 08:23 | ECG_ITS ---
[facility] Test Date: 2023-09-20 Pat Name: Cici Najera Department: Room: Gender: Female Official Greeter: : 1960 Requested By: Niko Azar Order Number: [id number] Kem MD: Michael Cao M.D. Measurements Intervals [place] Rate: 75 P: 74 [place]: 162 QRS: -55 QRSD: 108 T: 101 QT: 428 QTc: 479 Interpretive Statements SINUS RHYTHM POSSIBLE LEFT ATRIAL ENLARGEMENT [-0.1mV P-WAVE IN V1/V2] LEFT AXIS DEVIATION [QRS AXIS < -30] PATTERN CONSISTENT WITH PULMONARY DISEASE SEPTAL MYOCARDIAL INFARCTION , OF INDETERMINATE AGE [40+ ms Q WAVE IN V1/V2] Compared to ECG 07/30/2023 07:40:59 T-wave abnormality no longer present Possible ischemia no longer present Myocardial infarct finding still present Electronically Signed On 09-20-2023 16:45:39 CURRICULUM DESIGNER by Michael Cao M.D. [id number]
[2023-09-20] MEDS: FUROsemide 10 mg/mL SDV 10mL 60 MG IVP (08:49)
[2023-09-20 08:51] VITALS: PULSE 81; RESP 22; O2SAT 99
[2023-09-20 08:51] LABS: Troponin 5 2HR 59.33 ng/L (0-10)
[2023-09-20 08:52] LABS: Troponin 5 2HR Delta -6.67 ABS# (0-10)
--- NOTE | 2023-09-20 09:00 | PC.NURSE ---
ASSUMED CARE OF PATIENT AT 0900.
[2023-09-20 09:46] VITALS: BP 151/80; PULSE 77; O2SAT 97
[2023-09-20 10:30] VITALS: PULSE 72; O2SAT 99
== END 2023-09-20 11:24 | disposition home or self-care (01) ==
PROVIDERS: Emergency Provider Family Medicine; PCP Family Medicine
DX: I50.9 Heart failure, unspecified (principal); Z79.82 Long term (current) use of aspirin; Z79.4 Long term (current) use of insulin; Z79.02 Long term (current) use of antithrombotics/antiplatelets; Z79.84 Long term (current) use of oral hypoglycemic drugs; E11.9 Type 2 diabetes mellitus without complications
CPT/HCPCS: 36415; 71045; 80053; 81001; 83880; 84484; 85025; 93005; 96374; 99285; J1940

== ENCOUNTER 2024-01-19 07:30 | Emergency (ER) | payer MEDICAID, SELFPAY ==
[2024-01-19 07:32] VITALS: BP 161/86; PULSE 86; TEMP 37; O2SAT 92; BMI 29.4
--- NOTE | 2024-01-19 07:35 | XRR_ITS ---
PROCEDURE INFORMATION: Exam: XR Chest Exam date and time: 01/19/2024 7:58 AM Age: 63 years old Clinical indication: Dyspnea; Prior surgery; Surgery date: 6+ months; Surgery type: Open heart TECHNIQUE: Imaging protocol: Radiologic exam of the chest. Views: 1 view. COMPARISON: CR XR chest 1V portable [id number] 09/20/2023 6:46 AM FINDINGS: Lungs: Decrease in the right lower lung zone opacity. Similar left lower lung zone pleuroparenchymal opacity. Pleural spaces: Small bilateral pleural effusions, decreased on the right side. Heart/Mediastinum: Unremarkable. No cardiomegaly. Bones/joints: Post sternotomy. XR/XR chest 1V portable [id number] IMPRESSION: Improved right lower lung zone pleural-parenchymal opacities with stable left lower lung zone pleuroparenchymal opacities.
--- NOTE | 2024-01-19 07:35 | ECG_ITS ---
[facility] Test Date: 2024-01-19 Pat Name: Cici Najera Department: Room: Gender: Female Hose Inspector: : 1960 Requested By: Niko Azar Order Number: [id number] Brownlee MD: Sukhi Romano M.D. Measurements Intervals [place] Rate: 84 P: 76 [place]: 166 QRS: -64 QRSD: 110 T: 104 QT: 400 QTc: 475 Interpretive Statements SINUS RHYTHM PATTERN CONSISTENT WITH PULMONARY DISEASE INCOMPLETE RIGHT BUNDLE BRANCH BLOCK [90+ ms QRS DURATION, TERMINAL R IN V1/V2, 40+ ms S IN I/aVL/V4/V5/V6] LEFT ANTERIOR FASCICULAR BLOCK [QRS AXIS <= -45, QR IN I, RS IN II] SEPTAL MYOCARDIAL INFARCTION , OF INDETERMINATE AGE [40+ ms Q WAVE IN V1/V2] Compared to ECG 09/20/2023 09:15:07 Incomplete right bundle-branch block now present Left anterior fascicular block now present Left-axis deviation no longer present Myocardial infarct finding still present Electronically Signed On 01-19-2024 12:40:21 CDT by Sukhi Romano M.D. [id number]
--- NOTE | 2024-01-19 07:43 | W.ED.SOB ---
HPI - SOB/Dyspnea General: Chief Complaint: Shortness of Breath/Dyspnea Stated Complaint: SOB Time Seen by Provider: 01/19/24 07:34 Source: patient Mode of arrival: ambulatory History of Present Illness: HPI Narrative: 63-year-old female presents emergency room via EMS with a complaint of increased shortness of breath. Patient reports she has previously had bypass surgery about 10 months ago. This morning she had increased shortness of breath few days ago she been working outside for quite a period of time. She denies any chest pain. Shortness of breath is worse with exertion better with rest. No fever sweats chills or productive cough MD elicited complaint: shortness of breath Timing: intermittent Exacerbating factors: exertion Relieving factors: oxygen and rest Associated symptoms: Deny abdominal pain, chest congestion, chest pain, cough, diaphoresis, dizziness, extremity pain, fever(s), hemoptysis, lightheadedness, myalgias, nausea, orthopnea, palpitations, paresthesias, polydipsia, polyuria, rash, sense of impending doom, syncope, vomiting or other Treatment prior to arrival: none Related Data: Home oxygen amount: none Review of Systems Const: Denies: fever(s), chills or diaphoresis Card: Denies: chest pain, palpitations, lightheadedness, syncope or orthopnea Resp: Reports: dyspnea; Denies: hemoptysis or chest congestion GI: Denies: abdominal pain, nausea or vomiting : Denies: dysuria, urinary frequency or urinary urgency Musc: Denies: neck pain, back pain or extremity pain Skin/Breast: Denies: rash Neuro: Denies: dizziness Endo: Denies: polyuria or polydipsia Physical Exam Const: COMMON NORMALS: no acute distress GENERAL APPEARANCE: cooperative and comfortable ORIENTATION/CONSCIOUSNESS: Yes awake, Yes oriented to person, Yes oriented to place and Yes oriented to time HENMT: COMMON NORMALS: normocephalic, atraumatic and hearing grossly normal bilaterally HEAD & SCALP: normocephalic and atraumatic Resp: COMMON NORMALS: normal respiratory effort, No retractions, No use of accessory muscles and clear to auscultation bilaterally AUSCULTATION: clear to auscultation bilaterally Cardio: COMMON NORMALS: regular rate, regular rhythm and No murmurs present (Cardio) RATE: regular rate RHYTHM: regular rhythm GI: COMMON NORMALS: Soft to palpation and No hepatosplenomegaly present AUSCULTATION: Yes normoactive bowel sounds PALPATION: Yes Soft to palpation, No Tenderness to palpation present (GI), No Guarding due to palpation present (GI) and Yes No hepatosplenomegaly present Extremity: COMMON NORMALS: normal to inspection, capillary refill normal, no clubbing, cyanosis or edema, no calf tenderness and no pedal edema Neuro: SENSORIUM/ORIENTATION: Yes oriented to person, Yes oriented to place and Yes oriented to time Skin: COMMON NORMALS: no rashes or lesions noted GENERAL SKIN EXAM: no rashes or lesions noted Course Vital Signs: Vital signs: Vital Signs Temperature 98.6 F 01/19/24 07:32 Pulse Rate 86 01/19/24 07:32 Respiratory Rate 22 H 01/19/24 10:12 Blood Pressure 141/72 01/19/24 10:12 Pulse Oximetry 98 01/19/24 10:12 Oxygen Delivery Me thod Room Air 01/19/24 10:12 MDM - SOB/Dyspnea Medical Decision Making EKG and cardiac enzymes unremarkable. Patient is anemic we will schedule the patient for a Lexiscan sestamibi stress test additionally will refer through case management for cardiology and primary care provider for further workup on the anemia return if has further symptoms. Medical Records I reviewed the patient's medical records. Lab Data I reviewed the patient's lab results. 01/19/24 08:25 01/19/24 08:25 Labs/Radiology: Radiology Impressions Chest X-Ray 01/19/24 07:35 IMPRESSION: Improved right lower lung zone pleural-parenchymal opacities with stable left lower lung zone pleuroparenchymal opacities. Laboratory Results WBC 7.47 10^3/uL (3.29-11.43) 01/19/24 08:25 RBC 3.63 10^6/uL (3.85-5.65) L 01/19/24 08:25 Hgb 9.20 g/dL (11.27-16.99) L 01/19/24 08:25 Hct 29.2 % (36-47) L 01/19/24 08:25 MCV 80.4 fl (85-98) L 01/19/24 08:25 MCH 25.3 pg (27-33) L 01/19/24 08:25 MCHC 31.5 g/dL (30-55) 01/19/24 08:25 RDW 14.8 % (12.1-15.1) 01/19/24 08:25 Plt Count 136 10^3/cmm (157-399) L 01/19/24 08:25 MPV 9.6 fL (7.4-10.4) 01/19/24 08:25 Neut % (Auto) 80.8 % 01/19/24 08:25 Lymph % (Auto) 11.4 % 01/19/24 08:25 [place] % (Auto) 5.4 % 01/19/24 08:25 Eos % (Auto) 1.6 % 01/19/24 08:25 Baso % (Auto) 0.4 % 01/19/24 08:25 Neut # (Auto) 6.04 10^3/uL (1.8-7.7) 01/19/24 08:25 Lymph # (Auto) 0.9 10^3/uL (0.8-4.8) 01/19/24 08:25 [place] # (Auto) 0.4 10^3/uL (0.2-0.9) 01/19/24 08:25 Eos # (Auto) 0.1 10^3/uL (0.0-0.8) 01/19/24 08:25 Baso # (Auto) 0.0 10^3/uL (0.0-0.1) 01/19/24 08:25 Nucleated RBC % (auto) 0 % 01/19/24 08:25 Nucleated RBCs # 0.0 /100WBC 01/19/24 08:25 Sodium 140 mmol/L (136-145) 01/19/24 08:25 Potassium 5.1 mmol/L (3.5-5.1) 01/19/24 08:25 Chloride 106 mmol/L (98-107) 01/19/24 08:25 Carbon Dioxide 23 mmol/L (22-29) 01/19/24 08:25 Anion Gap 16.1 (5-19) 01/19/24 08:25 BUN 34 mg/dL (8-23) H 01/19/24 08:25 Creatinine 1.4 mg/dL (0.5-0.9) H 05/05/24 08:25 GFR Calculation 37.9 mL/min (90-130) L 01/19/24 08:25 Glucose 199 mg/dL (65-115) H 01/19/24 08:25 Calculated Osmolality 303 mOsm/kg (285-295) H 01/19/24 08:25 Calcium 8.9 mg/dL (8.5-10.5) 01/19/24 08:25 Total Bilirubin 0.5 mg/dL (0.15-1.2) 01/19/24 08:25 AST 14 U/L (0-32) 01/19/24 08:25 ALT 14 U/L (0-33) 01/19/24 08:25 Alkaline Phosphatase 62 U/L (35-105) 01/19/24 08:25 Troponin T Baseline 62 ng/L (0-10) H 01/19/24 08:25 Troponin T 120 Minute 56.98 ng/L (0-10) H 01/19/24 11:00 Delta Troponin T -5.02 ABS# (0-10) L 01/19/24 11:00 Total Protein 6.3 g/dL (6.6-8.7) L 01/19/24 08:25 Albumin 3.9 g/dL (3.5-5.2) 01/19/24 08:25 Globulin 2.4 g/dL (1.3-4.6) 01/19/24 08:25 All radiology interpretation(s) finalized by discharge Discharge Plan Discharge Patient Disposition: Home Clinical Impression: Dyspnea, Anemia, Coronary artery disease Condition: Stable Prescriptions: No Action aspirin 81 mg tablet,chewable 81 mg PO QAM Lantus U-100 Insulin 100 unit/mL solution 40 unit SUBCUT DAILY PRN (Reason: uses when out of glimepiride and tradjenta) metoprolol succinate 100 mg tablet extended release 24 hr 100 mg PO QAM clopidogrel 75 mg tablet 75 mg PO QAM glimepiride 4 mg tablet 4 mg PO QAM losartan 25 mg tablet 25 mg PO QAM Tradjenta 5 mg tablet 5 mg PO QAM Lasix 40 mg tablet 40 mg PO QAM Discharge Orders: Discharge ED (Routine); Ordered 01/19/24 Ordered By: Niko Babin Discharge Diet: Usual diet Discharge Activity: Limit activity as instructed Patient Instructions: Opioid Safety, Pain Management Activity Restrictions/Additional Instructions: Thank you for choosing [facility] for your healthcare needs today. Please realize this is an emergency room and that we are providing you with a medical screening exam and this may not be complete and all inclusive of all the testing and or work up that you may need to determine your ailment or severity of your illness. It is very important that you follow up as instructed or that you return to the Emergency Department should you have concerns or if your condition changes or worsens in any way. Case management will make arrangements for you to have a stress test as well as follow-up with cardiology and establishing with a primary care provider Coding Level of Care Code ED Supervisor Contingents for Kimberly Cabrales
[2024-01-19 08:41] LABS: Basophils % 0.4 %; Eosinophils # 0.1 10^3/uL (0.0-0.8); Eosinophils % 1.6 %; Hematocrit 29.2 % (36-47); Lymphocytes # 0.9 10^3/uL (0.8-4.8); Lymphocytes % 11.4 %; Mean Corpuscular HGB Conc 31.5 g/dL (30-55); Mean Corpuscular Hemoglobin 25.3 pg (27-33); Mean Corpuscular Volume 80.4 fl (85-98); Mean Platelet Volume 9.6 fL (7.4-10.4); Monocytes # 0.4 10^3/uL (0.2-0.9); Monocytes % 5.4 %; Neutrophils # 6.04 10^3/uL (1.8-7.7); Neutrophils % 80.8 %; Nucleated Red Blood Cells % 0 %; Platelet Count 136 10^3/cmm (157-399); Red Blood Count 3.63 10^6/uL (3.85-5.65); Red Cell Distribution Width 14.8 % (12.1-15.1); White Blood Count 7.47 10^3/uL (3.29-11.43)
[2024-01-19 09:00] LABS: Troponin(5th) Baseline 62 ng/L (0-10)
[2024-01-19 09:05] LABS: Alanine Aminotransferase 14 U/L (0-33); Albumin Level 3.9 g/dL (3.5-5.2); Alkaline Phosphatase 62 U/L (35-105); Anion Gap 16.1 (5-19); Aspartate Amino Transferase 14 U/L (0-32); Blood Urea Nitrogen 34 mg/dL (8-23); Calcium 8.9 mg/dL (8.5-10.5); Carbon Dioxide 23 mmol/L (22-29); Chloride 106 mmol/L (98-107); Globulin 2.4 g/dL (1.3-4.6); Glomerular Filtration Rate 37.9 mL/min (90-130); Glucose 199 mg/dL (65-115); Osmolality Calculated 303 mOsm/kg (285-295); Potassium 5.1 mmol/L (3.5-5.1); Sodium 140 mmol/L (136-145); Total Bilirubin 0.5 mg/dL (0.15-1.2); Total Protein 6.3 g/dL (6.6-8.7)
[2024-01-19 09:11] VITALS: BP 173/87; O2SAT 91
[2024-01-19 09:32] LABS: Creatinine Clr Calc Pharmacy 50.1768
--- NOTE | 2024-01-19 09:35 | ECG_ITS ---
[facility] Test Date: 2024-01-19 Pat Name: Cici Najera Department: Room: Gender: Female Insurance Counselor: : 1960 Requested By: Niko Azar Order Number: [id number] Kem MD: Sukhi Romano M.D. Measurements Intervals [place] Rate: 80 P: 77 [place]: 163 QRS: -63 QRSD: 109 T: 104 QT: 404 QTc: 469 Interpretive Statements SINUS RHYTHM PATTERN CONSISTENT WITH PULMONARY DISEASE INCOMPLETE RIGHT BUNDLE BRANCH BLOCK [90+ ms QRS DURATION, TERMINAL R IN V1/V2, 40+ ms S IN I/aVL/V4/V5/V6] LEFT ANTERIOR FASCICULAR BLOCK [QRS AXIS <= -45, QR IN I, RS IN II] SEPTAL MYOCARDIAL INFARCTION , OF INDETERMINATE AGE [40+ ms Q WAVE IN V1/V2] Compared to ECG 01/19/2024 07:47:16 No significant changes Electronically Signed On 01-19-2024 12:39:52 CDT by Sukhi Romano M.D. [id number]
[2024-01-19 10:12] VITALS: BP 141/72; RESP 22; O2SAT 98
[2024-01-19 11:24] LABS: Troponin 5 2HR 56.98 ng/L (0-10)
[2024-01-19 11:57] LABS: Troponin 5 2HR Delta -5.02 ABS# (0-10)
[2024-01-19 12:55] VITALS: BP 184/98; PULSE 84; RESP 18; TEMP 37; O2SAT 97
== END 2024-01-19 12:58 | disposition home or self-care (01) ==
PROVIDERS: Emergency Provider Family Medicine; PCP Family Medicine
DX: R06.00 Dyspnea, unspecified (principal); D64.9 Anemia, unspecified; I25.10 Atherosclerotic heart disease of native coronary artery without angina pectoris; Z79.02 Long term (current) use of antithrombotics/antiplatelets; Z79.82 Long term (current) use of aspirin; Z79.4 Long term (current) use of insulin; Z79.84 Long term (current) use of oral hypoglycemic drugs
CPT/HCPCS: 36415; 71045; 80053; 84484; 85025; 93005; 99285

== ENCOUNTER → 2024-07-20 13:05 | Outpatient (BNVA) | payer MEDICARE, MEDICAID, SELFPAY | PROVIDERS: Visit Provider Nurse Practitioner Family | DX: R39.9 Unspecified symptoms and signs involving the genitourinary system (principal) | CPT/HCPCS: 81000 ==

== ENCOUNTER 2024-11-29 03:22 | Emergency (ER) | payer MEDICARE, MEDICAID, SELFPAY ==
[2024-11-29] VITALS (13 sets, daily range): BP systolic 149–228; BP diastolic 73–98; PULSE 76–98; RESP 18–20; TEMP 36.6; O2SAT 93–98; BMI 31.5
--- NOTE | 2024-11-29 03:33 | ECG_ITS ---
[facility] Test Date: 2024-11-29 Pat Name: Cici Najera Department: Room: Gender: Female Residential Assistant: : 1960 Requested By: YUE Chávez Order Number: [id number] Reading MD: CIRA ABREU Measurements Intervals [place] Rate: 80 P: 61 [place]: 161 QRS: -38 QRSD: 113 T: 107 QT: 408 QTc: 471 Interpretive Statements SINUS RHYTHM LEFT AXIS DEVIATION [QRS AXIS < -30] PATTERN CONSISTENT WITH PULMONARY DISEASE MODERATE INTRAVENTRICULAR CONDUCTION DELAY [105+ ms QRS DURATION, 80+ ms Q/S IN V1/V2, NO Q AND 60+ ms R IN I/aVL/V5/V6] MODERATE T-WAVE ABNORMALITY, CONSIDER LATERAL ISCHEMIA [-0.1+ mV T-WAVE IN I/aVL/V5/V6] Compared to ECG 01/19/2024 11:16:00 Left-axis deviation now present Intraventricular conduction delay now present T-wave abnormality now present Electronically Signed On 11-30-2024 18:09:10 CDT by CIRA ABREU [id number] [id number]
--- NOTE | 2024-11-29 04:11 | XRR_ITS ---
PROCEDURE INFORMATION: Exam: XR Chest Exam date and time: 11/29/2024 4:13 AM Age: 64 years old Clinical indication: Chest pressure; Prior surgery; Surgery date: 6+ months; Surgery type: Cabg; Chest pain with hypertension; Additional info: Cp TECHNIQUE: Imaging protocol: Radiologic exam of the chest. Views: 1 view. COMPARISON: CR XR chest 1V portable [id number] 01/19/2024 07:58 FINDINGS: Tubes, catheters and devices: Surgical clips project over the left upper quadrant. Lungs: Low lung volumes. There are increased lung markings and slight haziness of the lower lungs in association with trace bilateral pleural effusions, which in the setting of cardiomegaly is consistent with pulmonary edema. Pneumonia should be excluded clinically. No pneumothorax. Pleural spaces: See Lungs finding. Heart/Mediastinum: Stable cardiomediastinal silhouette. Bones/joints: Median sternotomy changes seen. Degenerative changes of the spine seen. XR/XR chest 1V portable [id number] IMPRESSION: Imaging findings of pulmonary edema with trace bilateral pleural effusions. Pneumonia should be considered in the adequate clinical setting.
[2024-11-29 04:34] LABS: Basophils % 0.5 %; Eosinophils # 0.2 10^3/uL (0.0-0.8); Hematocrit 35.2 % (36-47); Lymphocytes % 10.8 %; Mean Corpuscular HGB Conc 32.4 g/dL (30-55); Mean Corpuscular Hemoglobin 27.2 pg (27-33); Mean Platelet Volume 9.7 fL (7.4-10.4); Monocytes # 0.5 10^3/uL (0.2-0.9); Neutrophils # 7.03 10^3/uL (1.8-7.7); Nucleated Red Blood Cells % 0 %; Platelet Count 165 10^3/cmm (157-399); Red Blood Count 4.19 10^6/uL (3.85-5.65); White Blood Count 8.79 10^3/uL (3.29-11.43)
[2024-11-29 04:54] LABS: Troponin(5th) Baseline 48 ng/L (0-10)
[2024-11-29] MEDS: nitroglycerin 0.4 mg sublingual Tablet SUBLINGUAL (04:54)
[2024-11-29 04:57] LABS: Anion Gap 15.5 (5-19); Blood Urea Nitrogen 42 mg/dL (8-23); Calcium 8.8 mg/dL (8.5-10.5); Carbon Dioxide 22 mmol/L (22-29); Chloride 107 mmol/L (98-107); Creatinine Clr Calc Pharmacy 37.7542; Glomerular Filtration Rate 26.5 mL/min (90-130); Glucose 300 mg/dL (65-115); Osmolality Calculated 312 mOsm/kg (285-295); Potassium 4.5 mmol/L (3.5-5.1); Sodium 140 mmol/L (136-145)
--- NOTE | 2024-11-29 05:01 | W.ED.CHESTPA ---
Documented by User: Chris Francisco DO 11/29/24 18:11 HPI - Chest Pain General: Chief Complaint: Chest Pain Stated Complaint: cp Time Seen by Provider: 11/29/24 04:25 History of Present Illness: Patient presents with chest heaviness and tightness progressively worsening over the past two days, with onset of prickly chest pain starting around midnight. Patient denies similar chest pain episodes in the past. Notably different from previous HI presentation in February 2023, which manifested primarily with vomiting and neck discomfort. Reports new onset shortness of breath over the past two weeks with persistent ankle edema despite being on Lasix. Patient acknowledges recent weight gain attributed to increased sedentary lifestyle. 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) - Chronic kidney disease stage 3B (GFR 34%) - Heart failure with reduced ejection fraction (EF 25-30%) Related Data Home Medications ?Medication ?Instructions ?Recorded ?Confirmed aspirin 81 mg chewable tablet 81 mg PO QAM 07/30/23 07/20/24 clopidogrel 75 mg tablet 75 mg PO QAM 09/20/23 07/20/24 furosemide 40 mg tablet (Lasix) 40 mg PO QAM 09/20/23 07/20/24 glimepiride 4 mg tablet 4 mg PO QAM 09/20/23 07/20/24 insulin glargine 100 unit/mL 40 unit SUBCUT DAILY PRN uses when 09/20/23 07/20/24 subcutaneous solution (Lantus out of glimepiride and tradjenta U-100 Insulin) linagliptin 5 mg tablet (Tradjenta) 5 mg PO QAM 09/20/23 07/20/24 losartan 25 mg tablet 25 mg PO QAM 09/20/23 07/20/24 metoprolol succinate 100 mg 100 mg PO QAM 09/20/23 07/20/24 tablet,extended release 24 hr Allergies Allergy/AdvReac Type Severity Reaction Status Date / Time metformin Allergy ADR-Nausea Verified 07/20/24 12:56 PFSH ED PFSH: Social History Smoking and tobacco/nicotine status: never used tobacco/nicotine Physical Exam Const: COMMON NORMALS: no acute distress, patient oriented x3, alert and well nourished HENMT: COMMON NORMALS: normocephalic HEAD & SCALP: normocephalic Eye: COMMON NORMALS: Equal, round and reactive pupils present, EOMs intact bilaterally and conjunctivae normal CONJUNCTIVA: Yes conjunctivae normal PUPIL: Yes Equal, round and reactive pupils present Neck/C-Spine: COMMON NORMALS: full ROM, no lymphadenopathy, supple, no meningeal signs, no JVD and Thyroid normal THYROID: Thyroid normal Chest: COMMONS NORMALS: normal inspection of the chest and normal palpation of entire chest wall Resp: COMMON NORMALS: normal respiratory effort, No retractions, No use of accessory muscles, clear to auscultation bilaterally and percussion normal AUSCULTATION: clear to auscultation bilaterally PERCUSSION: percussion normal Cardio: COMMON NORMALS: no JVD GI: COMMON NORMALS: Normal to inspection, nondistended, normoactive bowel sounds present, Soft to palpation, non-tender, No hepatosplenomegaly present, no masses and no bruits PALPATION: Yes Soft to palpation and Yes No hepatosplenomegaly present : COMMON NORMALS: Yes no CVA tenderness BLADDER/KIDNEY EXAM: Yes no CVA tenderness Back/Pelvis: COMMON NORMALS: no CVA tenderness Extremity: COMMON NORMALS: normal to inspection, full ROM, capillary refill normal, no joint enlargement, no clubbing, cyanosis or edema, no calf tenderness and no pedal edema Neuro: COMMON NORMALS: patient oriented x3 SENSORIUM/ORIENTATION: Yes alert MENINGEAL SIGNS: Yes no meningeal signs Skin: COMMON NORMALS: no rashes or lesions noted, turgor normal and no jaundice GENERAL SKIN EXAM: no rashes or lesions noted and turgor normal Course Vital Signs: Vital signs: Vital Signs Temperature 98 F 11/29/24 03:38 Pulse Rate 79 11/29/24 06:15 Respiratory Rate 18 11/29/24 06:15 Blood Pressure 167/88 11/29/24 06:15 Pulse Oximetry 97 11/29/24 06:15 Oxygen Delivery Me thod Room Air 11/29/24 06:15 Oxygen Flow Rate 2 11/29/24 04:25 MDM - Chest Pain Medical Decision Making 1. Acute Chest Pain - Concerning for Acute Coronary Syndrome - High-risk patient given history of recent HI and CABG - Plan for serial cardiac enzymes - Blood pressure management needed 2. Decompensated Heart Failure - Symptoms include SOB and peripheral edema - Known severely reduced EF - Will evaluate volume status and optimize diuretic therapy 3. Chronic Kidney Disease Stage 3B - Will monitor renal function with any interventions - Careful medication dosing required 4. Hypertension - Requires acute management - Will titrate medications considering renal function Lab Data 11/29/24 04:10 11/29/24 04:10 Radiology Impressions Chest X-Ray 11/29/24 04:11 IMPRESSION: Imaging findings of pulmonary edema with trace bilateral pleural effusions. Pneumonia should be considered in the adequate clinical setting. Laboratory Results WBC 8.79 10^3/uL (3.29-11.43) 11/29/24 04:10 RBC 4.19 10^6/uL (3.85-5.65) 11/29/24 04:10 Hgb 11.40 g/dL (11.27-16.99) 11/29/24 04:10 Hct 35.2 % (36-47) L 11/29/24 04:10 MCV 84.0 fl (85-98) L 11/29/24 04:10 MCH 27.2 pg (27-33) 11/29/24 04:10 MCHC 32.4 g/dL (30-55) 11/29/24 04:10 RDW 13.0 % (12.1-15.1) 11/29/24 04:10 Plt Count 165 10^3/cmm (157-399) 11/29/24 04:10 MPV 9.7 fL (7.4-10.4) 11/29/24 04:10 Neut % (Auto) 80.0 % 11/29/24 04:10 Lymph % (Auto) 10.8 % 11/29/24 04:10 Real % (Auto) 6.0 % 11/29/24 04:10 Eos % (Auto) 2.0 % 11/29/24 04:10 Baso % (Auto) 0.5 % 11/29/24 04:10 Neut # (Auto) 7.03 10^3/uL (1.8-7.7) 11/29/24 04:10 Lymph # (Auto) 1.0 10^3/uL (0.8-4.8) 11/29/24 04:10 Real # (Auto) 0.5 10^3/uL (0.2-0.9) 11/29/24 04:10 Eos # (Auto) 0.2 10^3/uL (0.0-0.8) 11/29/24 04:10 Baso # (Auto) 0.0 10^3/uL (0.0-0.1) 11/29/24 04:10 Nucleated RBC % (auto) 0 % 11/29/24 04:10 Nucleated RBCs # 0.0 /100WBC 11/29/24 04:10 Sodium 140 mmol/L (136-145) 11/29/24 04:10 Potassium 4.5 mmol/L (3.5-5.1) 11/29/24 04:10 Chloride 107 mmol/L (98-107) 11/29/24 04:10 Carbon Dioxide 22 mmol/L (22-29) 11/29/24 04:10 Anion Gap 15.5 (5-19) 11/29/24 04:10 BUN 42 mg/dL (8-23) H 11/29/24 04:10 Creatinine 1.9 mg/dL (0.5-0.9) H 11/29/24 04:10 GFR Calculation 26.5 mL/min (90-130) L 11/29/24 04:10 Glucose 300 mg/dL (65-115) H 11/29/24 04:10 Calculated Osmolality 312 mOsm/kg (285-295) H 11/29/24 04:10 Calcium 8.8 mg/dL (8.5-10.5) 11/29/24 04:10 Troponin T Baseline 48 ng/L (0-10) H 11/29/24 04:10 Troponin T 120 Minute 47.76 ng/L (0-10) H 11/29/24 05:45 Delta Troponin T -0.24 ABS# (0-10) L 11/29/24 05:45 ED provider radiology interpretation(s): No acute findings Other Data EKG reveals sinus rhythm with some nonspecific T wave changes evidence of anterior infarct but no ST elevation. Discharge Plan Discharge Patient Disposition: Home Clinical Impression: Chest pain Condition: Stable Prescriptions: No Action aspirin 81 mg tablet,chewable 81 mg PO QAM Lantus U-100 Insulin 100 unit/mL solution 40 unit SUBCUT DAILY PRN (Reason: uses when out of glimepiride and tradjenta) metoprolol succinate 100 mg tablet extended release 24 hr 100 mg PO QAM clopidogrel 75 mg tablet 75 mg PO QAM glimepiride 4 mg tablet 4 mg PO QAM losartan 25 mg tablet 25 mg PO QAM Tradjenta 5 mg tablet 5 mg PO QAM Lasix 40 mg tablet 40 mg PO QAM Discharge Orders: Discharge ED (Routine); Ordered 11/29/24 Ordered By: Luna Kent Discharge Diet: Advance as tolerated Discharge Activity: Resume usual activity Patient Instructions: Chest Pain (ED) Print Language: Canadian Coding Level of Care Code ED Home Service Director for Chg Fwd Documented by User: Luna Kent MD 11/29/24 06:24 HPI - Chest Pain General: Chief Complaint: Chest Pain Stated Complaint: cp Time Seen by Provider: 11/29/24 04:25 Related Data Home Medications ?Medication ?Instructions ?Recorded ?Confirmed aspirin 81 mg chewable tablet 81 mg PO QAM 07/30/23 07/20/24 clopidogrel 75 mg tablet 75 mg PO QAM 09/20/23 07/20/24 furosemide 40 mg tablet (Lasix) 40 mg PO QAM 09/20/23 07/20/24 glimepiride 4 mg tablet 4 mg PO QAM 09/20/23 07/20/24 insulin glargine 100 unit/mL 40 unit SUBCUT DAILY PRN uses when 09/20/23 07/20/24 subcutaneous solution (Lantus out of glimepiride and tradjenta U-100 Insulin) linagliptin 5 mg tablet (Tradjenta) 5 mg PO QAM 09/20/23 07/20/24 losartan 25 mg tablet 25 mg PO QAM 09/20/23 07/20/24 metoprolol succinate 100 mg 100 mg PO QAM 09/20/23 07/20/24 tablet,extended release 24 hr Allergies Allergy/AdvReac Type Severity Reaction Status Date / Time metformin Allergy ADR-Nausea Verified 07/20/24 12:56 PFSH ED PFSH: Social History Smoking and tobacco/nicotine status: never used tobacco/nicotine Course Vital Signs: Vital signs: Vital Signs Temperature 98 F 11/29/24 03:38 Pulse Rate 79 11/29/24 06:15 Respiratory Rate 18 11/29/24 06:15 Blood Pressure 167/88 11/29/24 06:15 Pulse Oximetry 97 11/29/24 06:15 Oxygen Delivery Me thod Room Air 11/29/24 06:15 Oxygen Flow Rate 2 11/29/24 04:25 MDM - Chest Pain Medical Decision Making 1. Acute Chest Pain - Concerning for Acute Coronary Syndrome - High-risk patient given history of recent HI and CABG - Plan for serial cardiac enzymes - Blood pressure management needed 2. Decompensated Heart Failure - Symptoms include SOB and peripheral edema - Known severely reduced EF - Will evaluate volume status and optimize diuretic therapy 3. Chronic Kidney Disease Stage 3B - Will monitor renal function with any interventions - Careful medication dosing required 4. Hypertension - Requires acute management - Will titrate medications considering renal function I reassessed patient she feels much improved her 2-hour delta was negative she is wanting to go home I feel she is stable for discharge she is going to follow-up with her natural gas technician she is return if worsening she understands agrees to plan. Lab Data 11/29/24 04:10 11/29/24 04:10 Radiology Impressions Chest X-Ray 11/29/24 04:11 IMPRESSION: Imaging findings of pulmonary edema with trace bilateral pleural effusions. Pneumonia should be considered in the adequate clinical setting. Laboratory Results WBC 8.79 10^3/uL (3.29-11.43) 11/29/24 04:10 RBC 4.19 10^6/uL (3.85-5.65) 11/29/24 04:10 Hgb 11.40 g/dL (11.27-16.99) 11/29/24 04:10 Hct 35.2 % (36-47) L 11/29/24 04:10 MCV 84.0 fl (85-98) L 11/29/24 04:10 MCH 27.2 pg (27-33) 11/29/24 04:10 MCHC 32.4 g/dL (30-55) 11/29/24 04:10 RDW 13.0 % (12.1-15.1) 11/29/24 04:10 Plt Count 165 10^3/cmm (157-399) 11/29/24 04:10 MPV 9.7 fL (7.4-10.4) 11/29/24 04:10 Neut % (Auto) 80.0 % 11/29/24 04:10 Lymph % (Auto) 10.8 % 11/29/24 04:10 Real % (Auto) 6.0 % 11/29/24 04:10 Eos % (Auto) 2.0 % 11/29/24 04:10 Baso % (Auto) 0.5 % 11/29/24 04:10 Neut # (Auto) 7.03 10^3/uL (1.8-7.7) 11/29/24 04:10 Lymph # (Auto) 1.0 10^3/uL (0.8-4.8) 11/29/24 04:10 Real # (Auto) 0.5 10^3/uL (0.2-0.9) 11/29/24 04:10 Eos # (Auto) 0.2 10^3/uL (0.0-0.8) 11/29/24 04:10 Baso # (Auto) 0.0 10^3/uL (0.0-0.1) 11/29/24 04:10 Nucleated RBC % (auto) 0 % 11/29/24 04:10 Nucleated RBCs # 0.0 /100WBC 11/29/24 04:10 Sodium 140 mmol/L (136-145) 11/29/24 04:10 Potassium 4.5 mmol/L (3.5-5.1) 11/29/24 04:10 Chloride 107 mmol/L (98-107) 11/29/24 04:10 Carbon Dioxide 22 mmol/L (22-29) 11/29/24 04:10 Anion Gap 15.5 (5-19) 11/29/24 04:10 BUN 42 mg/dL (8-23) H 11/29/24 04:10 Creatinine 1.9 mg/dL (0.5-0.9) H 11/29/24 04:10 GFR Calculation 26.5 mL/min (90-130) L 11/29/24 04:10 Glucose 300 mg/dL (65-115) H 11/29/24 04:10 Calculated Osmolality 312 mOsm/kg (285-295) H 11/29/24 04:10 Calcium 8.8 mg/dL (8.5-10.5) 11/29/24 04:10 Troponin T Baseline 48 ng/L (0-10) H 11/29/24 04:10 Troponin T 120 Minute 47.76 ng/L (0-10) H 11/29/24 05:45 Delta Troponin T -0.24 ABS# (0-10) L 11/29/24 05:45 All radiology interpretation(s) finalized by discharge Discharge Plan Discharge Patient Disposition: Home Clinical Impression: Chest pain Condition: Stable Prescriptions: No Action aspirin 81 mg tablet,chewable 81 mg PO QAM Lantus U-100 Insulin 100 unit/mL solution 40 unit SUBCUT DAILY PRN (Reason: uses when out of glimepiride and tradjenta) metoprolol succinate 100 mg tablet extended release 24 hr 100 mg PO QAM clopidogrel 75 mg tablet 75 mg PO QAM glimepiride 4 mg tablet 4 mg PO QAM losartan 25 mg tablet 25 mg PO QAM Tradjenta 5 mg tablet 5 mg PO QAM Lasix 40 mg tablet 40 mg PO QAM Discharge Orders: Discharge ED (Routine); Ordered 11/29/24 Ordered By: Luna Kent Discharge Diet: Advance as tolerated Discharge Activity: Resume usual activity Patient Instructions: Chest Pain (ED) Print Language: Canadian Coding Level of Care Code ED Home Service Director for Kimberly Cabrales
[2024-11-29 06:04] LABS: Troponin 5 2HR 47.76 ng/L (0-10)
[2024-11-29] MEDS: FUROsemide 10 mg/mL SDV 4mL 40 MG IVP (06:04)
[2024-11-29 06:07] LABS: Troponin 5 2HR Delta -0.24 ABS# (0-10)
--- NOTE | 2024-11-29 06:11 | ECG_ITS ---
[facility] Date: 2024-11-29 Pat Name: Cici Najera Department: Room: Gender: Female Linen Folder: : 1960 Requested By: YUE Chávez Order Number: [id number] Reading MD: CIRA ABREU Measurements Intervals [place] Rate: 77 P: 69 MS: 156 QRS: -69 QRSD: 113 T: 96 QT: 423 QTc: 480 Interpretive Statements SINUS RHYTHM LEFT AXIS DEVIATION [QRS AXIS < -30] MODERATE INTRAVENTRICULAR CONDUCTION DELAY [110+ ms QRS DURATION] MODERATE T-WAVE ABNORMALITY, CONSIDER LATERAL ISCHEMIA [-0.1+ mV T-WAVE IN I/aVL/V5/V6] Compared to ECG 01/19/2024 11:16:00 Left-axis deviation now present Intraventricular conduction delay now present Electronically Signed On 11-30-2024 18:18:09 CDT by CIRA ABREU [email or web address]
== END 2024-11-29 06:56 | disposition home or self-care (01) ==
PROVIDERS: Orthopaedic Surgery Sports Medicine; Emergency Provider Emergency Medicine
DX: R07.9 Chest pain, unspecified (principal); Z79.82 Long term (current) use of aspirin; Z79.02 Long term (current) use of antithrombotics/antiplatelets
CPT/HCPCS: 36415; 71045; 80048; 84484; 85025; 93005; 96374; 99285; J1940

== ENCOUNTER 2025-02-16 02:40 | Emergency (ER) | payer MEDICARE, SELFPAY ==
[2025-02-16] VITALS (7 sets, daily range): BP systolic 135–226; BP diastolic 64–106; PULSE 74–92; RESP 12–18; TEMP 37.3; O2SAT 93–96
--- NOTE | 2025-02-16 03:00 | ECG_ITS ---
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 Measurements Intervals [place] Rate: 89 P: 62 MO: 167 QRS: -71 QRSD: 110 T: 96 QT: 378 QTc: 460 Interpretive Statements SINUS RHYTHM WITH OCCASIONAL VENTRICULAR PREMATURE COMPLEXES POSSIBLE LEFT ATRIAL ENLARGEMENT [-0.1mV P-WAVE IN V1/V2] LEFT AXIS DEVIATION [QRS AXIS < -30] PATTERN CONSISTENT WITH PULMONARY DISEASE INCOMPLETE RIGHT BUNDLE BRANCH BLOCK [90+ ms QRS DURATION, TERMINAL R IN V1/V2, 40+ ms S IN I/aVL/V4/V5/V6] SEPTAL MYOCARDIAL INFARCTION , OF INDETERMINATE AGE [40+ ms Q WAVE IN V1/V2] Compared to ECG 11/29/2024 06:12:49 Ventricular premature complex(es) now present Incomplete right bundle-branch block now present Myocardial infarct finding now present Possible ischemia no longer present Electronically Signed On 02-16-2025 11:34:31 CDT by Sukhi Romano M.D. [email or web address]
--- NOTE | 2025-02-16 03:03 | XRR_ITS ---
PROCEDURE INFORMATION: Exam: XR Chest Exam date and time: 02/16/2025 3:04 AM Age: 64 years old Clinical indication: Shortness of breath; Prior surgery; Surgery date: 6+ months; Surgery type: Cabg TECHNIQUE: Imaging protocol: Radiologic exam of the chest. Views: 1 view. COMPARISON: CR XR chest 1V portable [id number] 11/29/2024 4:13 AM FINDINGS: Lungs: Infiltrate versus epicardial fat pad, effusion versus superimposed soft tissue density at the lower left chest limited by patient body habitus. Pleural spaces: No pneumothorax. Heart/Mediastinum: Cardiomegaly. Bones/joints: Postoperative sternotomy. XR/XR chest 1V portable [id number] IMPRESSION: 1. Cardiomegaly. 2. Opacity at the lower left chest and lingula which could represent underlying infiltrate, pleural reaction versus summation of soft tissue densities.
[2025-02-16] MEDS: FUROsemide 10 mg/mL SDV 10mL 80 MG IVP (03:13)
[2025-02-16] MEDS: nitroglycerin 1 gm/inch oint Pkt 1 INCH TOPICAL (03:14)
[2025-02-16 03:18] LABS: Basophils % 0.3 %; Eosinophils # 0.2 10^3/uL (0.0-0.8); Eosinophils % 1.6 %; Hematocrit 35.2 % (36-47); Mean Corpuscular HGB Conc 31.8 g/dL (30-55); Mean Corpuscular Volume 84.8 fl (85-98); Monocytes # 0.7 10^3/uL (0.2-0.9); Monocytes % 5.8 %; Neutrophils # 9.51 10^3/uL (1.8-7.7); Neutrophils % 82.8 %; Nucleated Red Blood Cells % 0 %; Platelet Count 167 10^3/cmm (157-399); Red Blood Count 4.15 10^6/uL (3.85-5.65); Red Cell Distribution Width 13.3 % (12.1-15.1); White Blood Count 11.48 10^3/uL (3.29-11.43)
[2025-02-16 03:34] LABS: Troponin(5th) Baseline 56 ng/L (0-10)
[2025-02-16 03:44] LABS: Alanine Aminotransferase 11 U/L (0-33); Albumin Level 4.1 g/dL (3.5-5.2); Alkaline Phosphatase 84 U/L (35-105); Anion Gap 17.7 (5-19); Aspartate Amino Transferase 14 U/L (0-32); Blood Urea Nitrogen 36 mg/dL (8-23); Calcium 8.7 mg/dL (8.5-10.5); Carbon Dioxide 22 mmol/L (22-29); Chloride 106 mmol/L (98-107); Creatinine Clr Calc Pharmacy 35.8665; Globulin 2.5 g/dL (1.3-4.6); Glucose 227 mg/dL (65-115); NT Pro B Type Natriuretic Pept 2691 pg/mL (0-125); Osmolality Calculated 307 mOsm/kg (285-295); Potassium 4.7 mmol/L (3.5-5.1); Sodium 141 mmol/L (136-145); Total Bilirubin 0.2 mg/dL (0.15-1.2); Total Protein 6.6 g/dL (6.6-8.7)
--- NOTE | 2025-02-16 04:26 | W.ED.RECABL ---
HPI - Recheck/Abnormal Lab/Rx General: Chief Complaint: Recheck/Abnormal Lab/Rx Stated Complaint: n/v/d, htn Time Seen by Provider: 02/16/25 02:45 History of Present Illness: Patient is a 64-year-old female from home by ambulance seen for nausea, diarrhea, and accelerated hypertension. She states that several years ago when she was having a heart attack her only symptom was nausea and she was fearful that she was suffering the same given her accelerated hypertension with systolic just above 200. She has been taking her normal medications as prescribed. She is also concerned because she has a component of congestive heart failure and of CKD and she sometimes finds it problematic to balance her fluids and thinks that she might have extra fluid on her at this time. She denies recent sickness, fever, dysuria, frequency, flank pain, chest pain, shortness of breath, and has no other acute complaints. Related Data Home Medications ?Medication ?Instructions ?Recorded ?Confirmed aspirin 81 mg chewable tablet 81 mg PO QAM 07/30/23 07/20/24 clopidogrel 75 mg tablet 75 mg PO QAM 09/20/23 07/20/24 furosemide 40 mg tablet (Lasix) 40 mg PO QAM 09/20/23 07/20/24 glimepiride 4 mg tablet 4 mg PO QAM 09/20/23 07/20/24 insulin glargine 100 unit/mL 40 unit SUBCUT DAILY PRN uses when 09/20/23 07/20/24 subcutaneous solution (Lantus out of glimepiride and tradjenta U-100 Insulin) linagliptin 5 mg tablet (Tradjenta) 5 mg PO QAM 09/20/23 07/20/24 losartan 25 mg tablet 25 mg PO QAM 09/20/23 07/20/24 metoprolol succinate 100 mg 100 mg PO QAM 09/20/23 07/20/24 tablet,extended release 24 hr Previous Rx's ?Medication ?Instructions ?Recorded ondansetron 4 mg disintegrating 4 mg PO Q8H PRN nausea and 02/16/25 tablet vomiting 4 days #14 tabs Allergies Allergy/AdvReac Type Severity Reaction Status Date / Time metformin Allergy ADR-Nausea Verified 02/16/25 03:00 [facility] ED PFSH: Social History Smoking and tobacco/nicotine status: never used tobacco/nicotine Physical Exam Const: COMMON NORMALS: no acute distress, patient oriented x3 and alert HENMT: COMMON NORMALS: normocephalic and atraumatic HEAD & SCALP: normocephalic and atraumatic Eye: COMMON NORMALS: Equal, round and reactive pupils present, EOMs intact bilaterally and no scleral icterus PUPIL: Yes Equal, round and reactive pupils present Resp: COMMON NORMALS: normal respiratory effort and No retractions Cardio: COMMON NORMALS: regular rate, regular rhythm and No murmurs present (Cardio) RATE: regular rate RHYTHM: regular rhythm GI: COMMON NORMALS: Normal to inspection, nondistended, normoactive bowel sounds present, Soft to palpation and non-tender PALPATION: Yes Soft to palpation Extremity: NARRATIVE EXTREMITY EXAM: Mild edema of all 4 extremities. Neuro: COMMON NORMALS: patient oriented x3 SENSORIUM/ORIENTATION: Yes alert Skin: COMMON NORMALS: no rashes or lesions noted GENERAL SKIN EXAM: no rashes or lesions noted Course Vital Signs: Vital signs: Vital Signs Temperature 99.2 F 02/16/25 02:40 Pulse Rate 79 02/16/25 03:30 Respiratory Rate 15 02/16/25 03:30 Blood Pressure 172/78 02/16/25 03:30 Pulse Oximetry 95 02/16/25 03:30 Oxygen Delivery Me thod Room Air 02/16/25 03:00 MDM - Recheck/Abnormal Lab/Rx Medical Decision Making In summary, patient is a generally well-appearing 64-year-old female seen for nausea and diarrhea as well as accelerated hypertension. Without intervention, blood pressure is roughly 200 systolic to 140/70. EKG is reassuring and troponin is stable when compared with prior studies. CKD also appears remained stable with creatinine of 2.1 up from 2.0 when last checked. I do not suspect ACS or any other emergent process warranting further workup. I favor the diagnosis of viral gastroenteritis causing her nausea and diarrhea which she states is already getting better. She be given a short course of Zofran and discharged in stable and improved condition. Lab Data 02/16/25 02:58 02/16/25 02:58 Laboratory Results WBC 11.48 10^3/uL (3.29-11.43) H 02/16/25 02:58 RBC 4.15 10^6/uL (3.85-5.65) 02/16/25 02:58 Hgb 11.20 g/dL (11.27-16.99) L 02/16/25 02:58 Hct 35.2 % (36-47) L 02/16/25 02:58 MCV 84.8 fl (85-98) L 02/16/25 02:58 MCH 27.0 pg (27-33) 02/16/25 02:58 MCHC 31.8 g/dL (30-55) 02/16/25 02:58 RDW 13.3 % (12.1-15.1) 02/16/25 02:58 Plt Count 167 10^3/cmm (157-399) 02/16/25 02:58 MPV 10.0 fL (7.4-10.4) 02/16/25 02:58 Neut % (Auto) 82.8 % 02/16/25 02:58 Lymph % (Auto) 9.0 % 02/16/25 02:58 Keith % (Auto) 5.8 % 02/16/25 02:58 Eos % (Auto) 1.6 % 02/16/25 02:58 Baso % (Auto) 0.3 % 02/16/25 02:58 Neut # (Auto) 9.51 10^3/uL (1.8-7.7) H 02/16/25 02:58 Lymph # (Auto) 1.0 10^3/uL (0.8-4.8) 02/16/25 02:58 Keith # (Auto) 0.7 10^3/uL (0.2-0.9) 02/16/25 02:58 Eos # (Auto) 0.2 10^3/uL (0.0-0.8) 02/16/25 02:58 Baso # (Auto) 0.0 10^3/uL (0.0-0.1) 02/16/25 02:58 Nucleated RBC % (auto) 0 % 02/16/25 02:58 Nucleated RBCs # 0.0 /100WBC 02/16/25 02:58 Sodium 141 mmol/L (136-145) 02/16/25 02:58 Potassium 4.7 mmol/L (3.5-5.1) 02/16/25 02:58 Chloride 106 mmol/L (98-107) 02/16/25 02:58 Carbon Dioxide 22 mmol/L (22-29) 02/16/25 02:58 Anion Gap 17.7 (5-19) 02/16/25 02:58 BUN 36 mg/dL (8-23) H 02/16/25 02:58 Creatinine 2.0 mg/dL (0.5-0.9) H 02/16/25 02:58 GFR Calculation 25.0 mL/min (90-130) L 02/16/25 02:58 Glucose 227 mg/dL (65-115) H 02/16/25 02:58 Calculated Osmolality 307 mOsm/kg (285-295) H 02/16/25 02:58 Calcium 8.7 mg/dL (8.5-10.5) 02/16/25 02:58 Total Bilirubin 0.2 mg/dL (0.15-1.2) 02/16/25 02:58 AST 14 U/L (0-32) 02/16/25 02:58 ALT 11 U/L (0-33) 02/16/25 02:58 Alkaline Phosphatase 84 U/L (35-105) 02/16/25 02:58 Troponin T Baseline 56 ng/L (0-10) H 02/16/25 02:58 NT-Pro-B Natriuret Pep 2691 pg/mL (0-125) H 02/16/25 02:58 Total Protein 6.6 g/dL (6.6-8.7) 02/16/25 02:58 Albumin 4.1 g/dL (3.5-5.2) 02/16/25 02:58 Globulin 2.5 g/dL (1.3-4.6) 02/16/25 02:58 All radiology interpretation(s) finalized by discharge EKG Data EKG 1: Interpretation: Time?0249?sinus rhythm with infrequent PVCs, rate of 89, no ST segment elevation or depression, no T wave inversions, QTc = 424 Discharge Plan Discharge Patient Disposition: Home Clinical Impression: Nausea vomiting and diarrhea Condition: Stable Prescriptions: New ondansetron 4 mg tablet,disintegrating 4 mg PO Q8H PRN (Reason: nausea and vomiting) 4 Days Qty: 14 0RF No Action aspirin 81 mg tablet,chewable 81 mg PO QAM Lantus U-100 Insulin 100 unit/mL solution 40 unit SUBCUT DAILY PRN (Reason: uses when out of glimepiride and tradjenta) metoprolol succinate 100 mg tablet extended release 24 hr 100 mg PO QAM clopidogrel 75 mg tablet 75 mg PO QAM glimepiride 4 mg tablet 4 mg PO QAM losartan 25 mg tablet 25 mg PO QAM Tradjenta 5 mg tablet 5 mg PO QAM Lasix 40 mg tablet 40 mg PO QAM Discharge Orders: Discharge ED (Routine); Ordered 02/16/25 Ordered By: Marco A Jackson Referrals: Dyana Patiño LPN [Primary Care Provider] Discharge Diet: Advance as tolerated Discharge Activity: Increase activity as tolerated Patient Instructions: Gastroenteritis (ED) Activity Restrictions/Additional Instructions: As we discussed, your EKG and blood work are reassuring. There is no evidence of new heart disease today and your kidney function appears stable. Please continue your medications as prescribed and take Zofran as needed for nausea or vomiting. Diarrhea should resolve spontaneously. Print Language: Kiswahili Coding Level of Care Code ED Whipped Topping Mixer for Kimberly Cabrales
== END 2025-02-16 06:22 | disposition home or self-care (01) ==
PROVIDERS: Emergency Provider Student in an Organized Health Care Education/Training Program
DX: R11.2 Nausea with vomiting, unspecified (principal); R19.7 Diarrhea, unspecified; I10 Essential (primary) hypertension; Z79.82 Long term (current) use of aspirin; Z79.02 Long term (current) use of antithrombotics/antiplatelets
CPT/HCPCS: 71045; 80053; 83880; 84484; 85025; 93005; 96374; 99285; J1938; J9999